=== PATIENT | female | born 1990 | race Caucasian/White ===

== ENCOUNTER 2025-01-28 07:46 | Inpatient (IN) | payer OTHER ==
[~2025-01-28] VITALS: Ht 157.5 cm; Wt 59.9 kg
[~2025-01-28 07:46] MED LIST: CITA-108 PO; DIAZ1KIT4 RC; FENT1PAT; HYDR4 PO; LEVAHFA; MORP30TA11 PO; NITR100C9 PO; NOVE; NPH,100V SQ; PROM25PO MC; TIZA4CAP PO; ZOLP-162 PO; [UNRECOGNIZED DRUG - CODE] SQ
[2025-01-28] MEDS ORDERED: 0.9% SODIUM CHLORIDE 10 ML SYRINGE IVP PRN (08:00)
[2025-01-28] MEDS: SODIUM CHLORIDE 0.9% 1,800 ML IV ONE (08:08)
[2025-01-28] MEDS: LEVOFLOXACIN 750 MG/D5% WATER 150 ML IV ONE (08:14)
[2025-01-28] MEDS: ONDANSETRON HCL 4 MG/2 ML VIAL IVP ONE (08:15)
[2025-01-28 08:20] LABS: PLATELET COUNT (AUTO) 252 K/uL (150-450); RED BLOOD CELL COUNT(AUTO) 4.62 MIL/uL (4.00-5.20); RED CELL DISTRIBUTION WIDTH 14.8 % (11.5-14.5); WHITE BLOOD COUNT (AUTO) 5.6 K/uL (4.5-11.0)
[2025-01-28 08:21] LABS: COVID AG,FIA SOURCE NASAL SWAB
[2025-01-28 08:57] LABS: SARS-COV2 (COVID) ANTIGEN,FIA Negative (Negative)
[2025-01-28 08:58] LABS: INFLUENZA TYPE A NEGATIVE FOR TYPE A (NEGATIVE); INFLUENZA TYPE B NEGATIVE FOR TYPE B (NEGATIVE)
[2025-01-28] MEDS: MetroNIDAZOLE 500 MG/NACL 100 ML IV ONE (08:59)
[2025-01-28] MEDS: VANCOMYCIN HCL 1.25 GM in DEXTROSE 5%-WATER 250 ML IV ONE (08:59)
[2025-01-28 09:10] LABS: RBC MORPHOLOGY COMMENT ABNORMAL RBC MORPH
[2025-01-28 09:45] LABS: ALCOHOL, BLOOD (SERUM) < 3 mg/dL (0-10)
[2025-01-28 09:52] LABS: CALCIUM, TOTAL 8.7 mg/dL (8.8-10.5); CREATININE 0.49 mg/dL (0.60-1.30); GLOMERULAR FILTR. RATE CALC > 60 mL/min (>60); GLUCOSE,RANDOM 289 mg/dL (70-110); SODIUM SERUM 129 mmol/L (136-145); UREA NITROGEN, BLOOD 24 mg/dL (7-18)
[2025-01-28 09:57] LABS: LACTIC ACID 1.1 mmol/L (0.4-2.0)
[2025-01-28] MEDS ORDERED: POTASSIUM CHLORIDE 20 MEQ ER TABLET PO ONE (10:00)
[2025-01-28 10:03] LABS: TROPONIN I-HIGH SENSITIVITY 13 ng/L (<51)
[2025-01-28 10:07] LABS: ASPARTATE AMINOTRANSFERASE 28 U/L (15-37); CREATINE KINASE, TOTAL ONLY 103 U/L (26-192); TOTAL PROTEIN, SERUM 7.0 g/dL (6.4-8.2)
[2025-01-28] MEDS: POTASSIUM CHLORIDE 10% 40 MEQ/30 ML LIQUID UDCUP PO ONE (11:49)
[2025-01-28] MEDS ORDERED: BISACODYL 10 MG RECTAL RECTAL SUPPOSITORY PR PRN (12:15)
[2025-01-28] MEDS ORDERED: IPRATROPIUM BROMIDE 0.5 MG/2.5 ML NEB SOLUTION NEB PRN ×2 (12:15)
[2025-01-28] MEDS ORDERED: MAGNESIUM HYDROXIDE SUSPENSION 30 ML UDCUP PO PRN (12:15)
[2025-01-28] MEDS ORDERED: ALBUTEROL SULFATE 2.5 MG/0.5 ML NEB SOLUTION NEB PRN ×2 (12:15)
[2025-01-28] MEDS ORDERED: ZOLPIDEM TARTRATE 5 MG TABLET PO PRN (12:15)
[2025-01-28 12:42] VITALS: BP 146/101; PULSE 105; RESP 20; TEMP 97.5; O2SAT 100
[2025-01-28] MEDS: SODIUM CHLORIDE 0.9% 1,000 ML IV ONE (13:31)
[2025-01-28] MEDS: ONDANSETRON HCL 4 MG/2 ML VIAL IVP PRN (13:40)
[2025-01-28] MEDS: HYDROCODONE/ACETAMINOPHEN 5-325 MG TABLET PO PRN (15:26)
[2025-01-28] MEDS ORDERED: HEPARIN SODIUM,PORCINE 5,000 UNITS/ML VIAL SQ SCH (16:00)
[2025-01-28 16:30] LABS: RED BLOOD CELL COUNT(AUTO) 5.15 MIL/uL (4.00-5.20); RED CELL DISTRIBUTION WIDTH 15.2 % (11.5-14.5); WHITE BLOOD COUNT (AUTO) 10.3 K/uL (4.5-11.0)
[2025-01-28] MEDS: VANCOMYCIN HCL 500 MG in DEXTROSE 5%-WATER 100 ML IV SCH (16:32)
[2025-01-28 16:34] LABS: PLATELET COUNT (AUTO) 236 K/uL (150-450)
[2025-01-28] MEDS: HEPARIN SODIUM 25000 UNITS/D5W 250 ML IV PRN (16:39)
[2025-01-28 16:50] VITALS: BP 143/91; PULSE 97; RESP 18; TEMP 98.2; O2SAT 100
[2025-01-28] MEDS: CLINDAMYCIN 600 MG/D5% WATER 50 ML IV SCH (18:09)
[2025-01-28 20:07] VITALS: BP 154/103; PULSE 101; RESP 21; TEMP 99.3; O2SAT 100
[2025-01-28] MEDS: ACETAMINOPHEN 325 MG TABLET PO PRN (20:29)
[2025-01-28] MEDS: ZOLPIDEM TARTRATE 5 MG TABLET PO SCH (21:00)
[2025-01-28] MEDS: DOCUSATE SODIUM 100 MG CAPSULE PO SCH (21:00)
[2025-01-28] MEDS: INSULIN NPH, HUMAN ISOPHANE 100 UNITS/ML SQ SCH (21:35)
[2025-01-28] MEDS: HEPARIN SODIUM,PORCINE 5,000 UNITS/ML VIAL IVP PRN (22:31)
[2025-01-29 00:01] VITALS: BP 149/94; PULSE 89; RESP 19; TEMP 98.1; O2SAT 100
[2025-01-29] MEDS ORDERED: SODIUM CHLORIDE 0.9% 500 ML IV ONE (01:02)
[2025-01-29 01:15] LABS: GLUCOMETER DEV NAME(LOC) 5N.1D; GLUCOSE,POINT OF CARE 319 MG/DL (70-110)
[2025-01-29 04:00] VITALS: BP 159/102; PULSE 86; RESP 18; TEMP 97.9; O2SAT 99
[2025-01-29 06:19] LABS: APPEARANCE,URINE CLEAR (CLEAR); GLUCOSE, URINE (UA) >=1000 mg/dL (NEGATIVE); LEUKOCYTE ESTERASE ,URINE TRACE (NEGATIVE); NITRATE,URINE NEGATIVE (NEGATIVE); OCCULT BLOOD,URINE LARGE (NEGATIVE); PH,URINE DRUG SCREEN 6.5 (5.0-8.0); SPECIFIC GRAVITIY, URINE 1.034 (1.003-1.030)
[2025-01-29 06:28] LABS: PLATELET COUNT (AUTO) 278 K/uL (150-450); RED BLOOD CELL COUNT(AUTO) 4.99 MIL/uL (4.00-5.20); RED CELL DISTRIBUTION WIDTH 15.4 % (11.5-14.5); WHITE BLOOD COUNT (AUTO) 7.5 K/uL (4.5-11.0)
[2025-01-29 06:28] LABS: ALCOHOL, URINE DRUG SCREEN NEGATIVE (NEGATIVE); AMPHET/METH SCREEN,URINE POSITIVE (NEGATIVE); BARBITURATE SCREEN, URINE NEGATIVE (NEGATIVE); CANNABINOID SCREEN,URINE NEGATIVE (NEGATIVE); COCAINE SCREEN,URINE NEGATIVE (NEGATIVE); METHADONE SCREEN, URINE NEGATIVE (NEGATIVE)
[2025-01-29] MEDS ORDERED: DEXTROSE 50%-WATER 25 GM/50 ML SYRINGE IVP PRN ×2 (06:30→22:30)
[2025-01-29] MEDS: INSULIN LISPRO 100 UNITS/ML SQ PRN ×2 (06:40→23:00)
[2025-01-29 06:49] LABS: CALCIUM, TOTAL 8.5 mg/dL (8.8-10.5); CREATININE 0.48 mg/dL (0.60-1.30); GLOMERULAR FILTR. RATE CALC > 60 mL/min (>60); GLUCOSE,RANDOM 223 mg/dL (70-110); SODIUM SERUM 132 mmol/L (136-145); UREA NITROGEN, BLOOD 14 mg/dL (7-18)
[2025-01-29 07:36] LABS: SULFOSALICYLIC ACID,URINE 3+ (Negative)
[2025-01-29 07:37] LABS: SQUAMOUS EPITHELIAL CELL,UR Few /LPF (None Seen)
[2025-01-29] MEDS: HEPARIN SODIUM,PORCINE 5,000 UNITS/ML VIAL IVP PRN (07:40)
[2025-01-29 08:32] VITALS: BP 146/97; PULSE 89; RESP 19; TEMP 99.3; O2SAT 100
[2025-01-29] MEDS: PANTOPRAZOLE SODIUM 40 MG DR TABLET PO SCH (09:06)
[2025-01-29 10:55] LABS: GLUCOMETER DEV NAME(LOC) 5S.1D; GLUCOSE,POINT OF CARE 316 MG/DL (70-110)
[2025-01-29 12:35] VITALS: BP 142/95; PULSE 90; RESP 18; TEMP 98.1; O2SAT 100
[2025-01-29 12:36] LABS: GLUCOMETER DEV NAME(LOC) 5N.1D; GLUCOSE,POINT OF CARE 319 MG/DL (70-110)
[2025-01-29 16:28] VITALS: BP 132/87; PULSE 87; RESP 19; TEMP 97.9; O2SAT 100
[2025-01-29 18:40] LABS: GLUCOMETER DEV NAME(LOC) 5S.1D; GLUCOSE,POINT OF CARE 290 MG/DL (70-110)
[2025-01-29 21:00] VITALS: BP 152/102; PULSE 84; RESP 19; TEMP 97.3; O2SAT 99
[2025-01-29 22:15] LABS: GLUCOMETER DEV NAME(LOC) 5S.1D; GLUCOSE,POINT OF CARE 475 MG/DL (70-110)
[2025-01-30] VITALS: RESP 18; O2SAT 99
[2025-01-30 00:22] VITALS: BP 142/98; PULSE 82; RESP 19; TEMP 97.5; O2SAT 98
[2025-01-30 04:07] LABS: HEPATITIS C AB (EIA) Non Reactive (Non Reactive)
[2025-01-30 04:16] VITALS: BP 146/92; PULSE 76; RESP 18; TEMP 97.5; O2SAT 99
[2025-01-30 06:31] LABS: CALCIUM, TOTAL 8.4 mg/dL (8.8-10.5); CREATININE 0.43 mg/dL (0.60-1.30); GLOMERULAR FILTR. RATE CALC > 60 mL/min (>60); GLUCOSE,RANDOM 265 mg/dL (70-110); SODIUM SERUM 132 mmol/L (136-145); UREA NITROGEN, BLOOD 15 mg/dL (7-18)
[2025-01-30 06:37] LABS: PLATELET COUNT (AUTO) 314 K/uL (150-450); RED BLOOD CELL COUNT(AUTO) 4.62 MIL/uL (4.00-5.20); RED CELL DISTRIBUTION WIDTH 15.0 % (11.5-14.5); WHITE BLOOD COUNT (AUTO) 7.4 K/uL (4.5-11.0)
[2025-01-30] MEDS: VANCOMYCIN HCL 750 MG in DEXTROSE 5%-WATER 250 ML IV SCH (08:17)
[2025-01-30 08:20] LABS: GLUCOMETER DEV NAME(LOC) 5S.1D; GLUCOSE,POINT OF CARE 305 MG/DL (70-110)
[2025-01-30 08:20] LABS: GLUCOMETER DEV NAME(LOC) 5S.1D; GLUCOSE,POINT OF CARE 270 MG/DL (70-110)
[2025-01-30 09:15] VITALS: BP 172/108; PULSE 76; RESP 18; TEMP 98.2; O2SAT 99
[2025-01-30] MEDS ORDERED: POTASSIUM CHL 10 MEQ/WATER 50 ML IV PRN (10:00)
[2025-01-30] MEDS: POTASSIUM CHLORIDE 20 MEQ ER TABLET PO PRN (10:05)
[2025-01-30] MEDS: MORPHINE SULFATE 4 MG/ML SYRINGE IVP PRN (10:23)
[2025-01-30 10:25] VITALS: BP 140/101; PULSE 97; RESP 20; TEMP 97.7; O2SAT 99
[2025-01-30 16:00] VITALS: BP 149/100; PULSE 84; RESP 18; TEMP 97.9; O2SAT 100
[2025-01-30 17:06] LABS: GLUCOMETER DEV NAME(LOC) 5S.1D; GLUCOSE,POINT OF CARE 372 MG/DL (70-110)
[2025-01-30 17:06] LABS: GLUCOMETER DEV NAME(LOC) 5S.2D; GLUCOSE,POINT OF CARE 205 MG/DL (70-110)
[2025-01-30 17:06] LABS: GLUCOMETER DEV NAME(LOC) 5S.2D; GLUCOSE,POINT OF CARE 414 MG/DL (70-110)
[2025-01-30 17:06] LABS: GLUCOMETER DEV NAME(LOC) 5S.2D; GLUCOSE,POINT OF CARE 447 MG/DL (70-110)
[2025-01-30] MEDS ORDERED: INSULIN NPH, HUMAN ISOPHANE 100 UNITS/ML SQ SCH (21:00)
== END 2025-01-30 19:00 | disposition left against medical advice (07) | DRG 720 ==
LOC: EMS 07:46 → EDH 09:40 → 5S 12:30
PROVIDERS: ADMIT Internal Medicine; ATTEND Internal Medicine
DX: A41.9 Sepsis, unspecified organism (principal); E87.1 Hypo-osmolality and hyponatremia; I80.8 Phlebitis and thrombophlebitis of other sites; L03.116 Cellulitis of left lower limb; E11.9 Type 2 diabetes mellitus without complications; D64.9 Anemia, unspecified; Z20.822 Contact with and (suspected) exposure to COVID-19; G40.909 Epilepsy, unspecified, not intractable, without status epilepticus; J45.909 Unspecified asthma, uncomplicated; I10 Essential (primary) hypertension; G47.00 Insomnia, unspecified; E87.6 Hypokalemia; Z53.29 Procedure and treatment not carried out because of patient's decision for other reasons; F19.10 Other psychoactive substance abuse, uncomplicated; Z91.199 Patient's noncompliance with other medical treatment and regimen due to unspecified reason; Z86.718 Personal history of other venous thrombosis and embolism; Z88.0 Allergy status to penicillin
CPT/HCPCS: 71045; 80048; 80076; 80202; 80307; 81001; 81002; 82271; 82550; 82962; 83605; 83880; 84132; 84145; 84484; 84703; 85025; 85610; 85730; 86803; 87040; 87340; 87804; 93005; 93970; 96365; 96375; 99291; G0378; G0480; J1644; J1815; J1956; J2270; J2405; J3373; J3374; J3490; J7030; J7040; J7060; 36415-L1; 36415-TC